=== PATIENT | female | born 1990 | race Caucasian/White ===

== ENCOUNTER 2021-04-07 10:29 | Emergency (ER) | payer OTHER ==
[~2021-04-07] VITALS: Ht 154.9 cm; Wt 80.3 kg
[2021-04-07 10:32] VITALS: BP 156/94
[2021-04-07] MEDS ORDERED: ACET-10509 PO (11:11)
[2021-04-07 11:21] VITALS: BP 156/94
--- NOTE | 2021-04-07 11:21 | NUR ---
Patient discharged with v/s stable. Written and verbal after care instructions given and explained. Patient alert, oriented and verbalized understanding of instructions. Ambulatory with steady gait. All questions addressed prior to discharge. ID band removed. Patient advised to follow up with PMD. Rx of TYLENOL EXTRA STRENGTH given. Patient educated on indication of medication including possible reaction and side effects. Opportunity to ask questions provided and answered.
== END 2021-04-07 11:21 | disposition home or self-care (01) ==
LOC: MED 10:29
DX: S06.0X9A Concussion with loss of consciousness of unspecified duration, initial encounter (principal); S63.612A Unspecified sprain of right middle finger, initial encounter; S63.614A Unspecified sprain of right ring finger, initial encounter; K21.9 Gastro-esophageal reflux disease without esophagitis; Z79.899 Other long term (current) drug therapy; W50.0XXA Accidental hit or strike by another person, initial encounter; Y93.89 Activity, other specified; Y92.89 Other specified places as the place of occurrence of the external cause; Y99.8 Other external cause status
CPT/HCPCS: 99282